=== PATIENT | female | born 1970 | race Caucasian/White ===

== ENCOUNTER 2017-06-20 12:08 | Inpatient (IN) | payer BC, OTHER ==
[~2017-06-20] VITALS: Ht 157.5 cm; Wt 89.6 kg
--- NOTE | ~2017-06-20 | S ---
[facility] [place] [address] SURGICAL PATH RPT PROCEDURE Name: NIVIA CHU Room #: 218-P DIS IN M.R.#: [id number] Admission: 06/20/17 Date of : 66 Discharge: 06/22/17 Report #: [id number] Path Case #: [id number] PATHOLOGY REPORT COLLECTION DATE: 06/22/2017 RECEIVED DATE: 06/22/2017 SUBMITTING PHYS: Dr. Randy Horne OTHER PHYS: Mary Lou Layne Dr. SPECIMEN(S) RECEIVED: A.Small bowel B.Antrum C.Distal esophagus * * * * * * * * * * * * FINAL DIAGNOSIS: A. Small bowel mucosa, small bowel rule out celiac, endoscopic biopsy: - No significant diagnostic abnormalities present. - Negative for villous blunting or increase in intraepithelial lymphocytes. B. Gastric mucosa, antrum, rule out H. pylori, endoscopic biopsy: - Two fragments showing gastric antral-type mucosa with mild reactive gastropathy. - One fragment showing small bowel-type mucosa with no significant diagnostic abnormalities. - Negative for atrophy or dysplasia. - Negative for Helicobacter pylori. C. Gastric cardia-type mucosa, distal esophagus, rule out Olvera's, endoscopic biopsy: - Mild chronic inflammation. - Negative for intestinal metaplasia or dysplasia. COMMENT: Well-controlled Helicobacter pylori immunohistochemical stain performed on block B1-negative. (IUV:mml; 06/25/2017) PATHOLOGIST: Jesica Mcclelland M.D. REPORT ELECTRONICALLY SIGNED BY: Jesica Mcclelland M.D. DATE/TIME: 06/25/2017 13:28 * * * * * * * * * * * * GROSS PATHOLOGY: A. Received in formalin labeled "Nivia Paulyuan, BX small bowel, rule [facility] [address] [place] [address] SURGICAL PATH RPT PROCEDURE Name: NIVIA CHU Keegan Room #: 218-P DIS IN ..#: [id number] Admission: 06/20/17 Date of : 66 Discharge: 06/22/17 Report #: [id number] Path Case #: [id number] out celiac," is a segment of clements soft tissue measuring 0.3 cm in maximum dimension. The specimen is submitted entirely in cassette A1. B. Received in formalin labeled "Yulissaletty Paulyuan, RYAN antrum, rule out H. pylori," are 3 segments of clements soft tissue measuring 1.2 x 0.7 x 0.3 cm in aggregate dimensions and ranging from 0.4 to 0.5 cm in maximum dimension. The specimen is submitted entirely in cassette B1. C. Received in formalin labeled "Yulissaletty Raymon, BX distal esophagus, rule out Olvera's," is a segment of clements soft tissue measuring 0.3 cm in maximum dimension. The specimen is submitted entirely in cassette C1. (TSD; 06/22/2017) CLINICAL HISTORY: Pre-OP DX: Chest pain Post-OP DX: Hiatal hernia, esophagitis, gastritis INITIAL CPT CODE(S): A; 94511 B; 70548, 31241 C; 90832 Professional services performed by [facility] at [facility] [address], [place] [address] Technical services performed by [facility] at [address] [place] [address], [facility] [address], [place] [address]. [facility] [address] [place] [address] PHONE: [phone] DIRECTOR: Booker Osborne M.D. * * * END OF REPORT * * *
--- NOTE | ~2017-06-20 | EKG ---
[address] [place] [place] [address] ELECTROCARDIOGRAM REPORT Name: NIVIA CHU Room #: 218-P [facility]#: [id number] Admission: 06/20/17 Attend Phys: Derik Gomez MD Discharge: Date of : 66 Report #: [id number] THIS REPORT FOR: //name// [facility] ED Test Date: 2017-06-20 Test Time: 12:21:09 Pat Name: NIVIA CHU Department: Room: 218 Gender: F Facilities Assistant: FRANCO : 1970 Requested By: Israel Rocha Order Number: [id number] MD: Mauri uKmari Measurements Intervals [place] Rate: 102 P: 38 CT: 177 QRS: 45 QRSD: 87 T: 7 QT: 350 QTc: 456 Interpretive Statements Sinus tachycardia Otherwise normal tracing No previous ECG available for comparison Electronically Signed On 06-21-2017 8:22:25 ENGINEERING LIBRARIAN by Mauri Kumari [email or web address] <ELECTRONICALLY SIGNED> By: Mauri Kumari MD, [facility] 06/21/17 0822 1221 1221 Mauri Kumari MD, FACC /EPI
[2017-06-20 12:10] VITALS: BP 155/90
[2017-06-20] MEDS ORDERED: ENSKYCE1 EACH PO (12:42)
[2017-06-20 13:07] LABS: ABSOLUTE NEUTROPHILS 4.5 thou/uL (1.4-8.2); BASOPHILS 1.1 % (0.0-2.0); EOSINOPHILS 5.6 % (0.0-3.0); HEMATOCRIT 38.4 % (37.0-47.0); HEMOGLOBIN 12.8 gm/dL (12.0-15.0); LYMPHOCYTES 31.5 % (24.0-44.0); MCH 28.7 pg (26.0-34.0); MCHC 33.4 g/dL (28.0-37.0); MCV 85.9 fL (80.0-100.0); MONOCYTES 9.6 % (1.0-8.0); PLATELET COUNT 324 thou/uL (150-400); POLYS 52.2 % (36.0-66.0); RBC 4.48 mil/uL (4.20-5.00); RDW 14.3 % (10.5-14.5); WBC 8.6 thou/uL (4.0-11.0)
[2017-06-20 13:16] LABS: ANION GAP 9 mmol/L (7-16); BUN 17 mg/dL (7-18); CALCIUM 9.2 mg/dL (8.5-10.1); CHLORIDE 104 mmol/L (98-107); CO2 27 mmol/L (21-32); CREATININE 0.7 mg/dL (0.6-1.0); GLUCOSE 95 mg/dL (74-106); POTASSIUM 3.8 mmol/L (3.5-5.1); SODIUM 140 mmol/L (136-145)
[2017-06-20 13:24] LABS: ALBUMIN 3.4 g/dL (3.4-5.0); MAGNESIUM 2.2 mg/dL (1.8-2.4); SGOT 31 U/L (15-37); SGPT 35 U/L (30-65); TOTAL BILIRUBIN 1.2 mg/dL (<0.1-1.0); TOTAL PROTEIN 7.3 g/dL (6.4-8.2); TROPONIN-I < 0.04 ng/mL (<0.06)
[2017-06-20 14:40] VITALS: BP 174/100
[2017-06-20 16:00] VITALS: BP 146/78
[2017-06-20 19:37] VITALS: BP 148/90
[2017-06-21 00:21] VITALS: BP 132/82
[2017-06-21 04:26] VITALS: BP 127/88
[2017-06-21 08:15] VITALS: BP 141/90
[2017-06-21 16:00] VITALS: BP 147/93
[2017-06-21 16:10] VITALS: BP 137/87
[2017-06-21 19:21] VITALS: BP 145/83
[2017-06-22 04:11] VITALS: BP 122/91
[2017-06-22 04:50] LABS: HEMATOCRIT 38.1 % (37.0-47.0); HEMOGLOBIN 12.8 gm/dL (12.0-15.0)
[2017-06-22 07:30] VITALS: BP 140/81
[2017-06-22 11:15] VITALS: BP 141/89
[2017-06-22 14:46] VITALS: BP 136/83
[2017-06-22 15:32] VITALS: BP 136/83
[2017-06-22] MEDS ORDERED: PANTOPRAZOLE SO40 M1 PO (16:34)
[2017-06-22 16:58] VITALS: BP 136/83
== END 2017-06-22 17:50 | disposition home or self-care (01) | DRG 382 ==
LOC: ER 12:08 → EROBS 13:45 → 2N 14:45
PROVIDERS: Emergency Medicine; Internal Medicine Gastroenterology
PROC: 0DB88ZX Excision of Small Intestine, Via Natural or Artificial Opening Endoscopic, Diagnostic (ICD-10-PCS; principal; 2017-06-22)
PROC: 0DB38ZX Excision of Lower Esophagus, Via Natural or Artificial Opening Endoscopic, Diagnostic (ICD-10-PCS; principal; 2017-06-22)
PROC: 0DB78ZX Excision of Stomach, Pylorus, Via Natural or Artificial Opening Endoscopic, Diagnostic (ICD-10-PCS; principal; 2017-06-22)
DX: K22.10 Ulcer of esophagus without bleeding (principal); K21.9 Gastro-esophageal reflux disease without esophagitis; R07.89 Other chest pain; E80.4 Gilbert syndrome; K29.70 Gastritis, unspecified, without bleeding; K44.9 Diaphragmatic hernia without obstruction or gangrene; Z90.49 Acquired absence of other specified parts of digestive tract; Z90.710 Acquired absence of both cervix and uterus; Z79.899 Other long term (current) drug therapy; Z88.2 Allergy status to sulfonamides
CPT/HCPCS: 10081; 62110; 62900; 70005